=== PATIENT | male | born 1955 | race African-American/Black ===

== ENCOUNTER 2020-05-06 11:36 | Emergency (ER) | payer OTHER ==
[2020-05-06 12:43] LABS: ALT (SGPT) 8 U/L (8-55); AST (SGOT) 13 U/L (5-34); Albumin 3.5 g/dL (3.4-4.8); Alkaline Phosphatase 49 U/L (40-110); Anion Gap 11 mmol/L (10-20); BUN (Urea Nitrogen) 25 mg/dL (8.4-25.7); Bilirubin, Total 0.3 mg/dL (0.2-1.2); Calc. Creatinine Clearance 0 mL/min (70-130); Calcium 8.6 mg/dL (7.8-10.44); Carbon Dioxide 24 mmol/L (23-31); Chloride 105 mmol/L (98-107); Globulin 2.9 g/dL (2.4-3.5); Glucose 160 mg/dL (80-115); Protein, Total 6.4 g/dL (5.8-8.1); Sodium 136 mmol/L (136-145)
[2020-05-06 12:44] LABS: Hemoglobin 4.5 g/dL (13.5-17.5)
[2020-05-06 12:45] LABS: Mean Corpuscular HGB CONC 28.3 g/dL (32.0-36.0); Mean Corpuscular Hemoglobin 17.4 pg (27.0-33.0); Mean Corpuscular Volume 61.6 fl (81.2-95.1); RBC Distribution Width 21.7 % (11.5-14.5); Red Blood Cell (RBC) Count 2.58 10x6/uL (4.32-5.72); White Blood Cell (WBC) Count 4.4 10x3/uL (3.5-10.5)
[2020-05-06 12:49] LABS: #Eosinphils 0.2 10x3/uL (0.0-0.5); #Monocytes 0.5 10x3/uL (0.0-1.1); #Neutrophils 2.8 10x3/uL (1.5-8.4); %Basophils 0.2 % (0.0-2.0); %Eosinophils 4.8 % (0.0-6.0); %Lymphocytes 19.5 % (18.0-47.0); %Monocytes 11.2 % (0.0-10.0); %Neutrophils 63.8 % (40.0-75.0); Platelet Count 146 10x3/uL (150-450)
[2020-05-06 13:15] LABS: Hypochromia SLIGHT = 6-15 cells (100X) (0-5/hpf)
[2020-05-06 13:16] LABS: Microcytosis MODERATE=15-30 cells (100X) (0-5/hpf)
[2020-05-06 13:17] LABS: Ovalocytes SLIGHT = 2-5 cells (100X) (0-1/hpf)
[2020-05-06 13:23] LABS: Anisocytosis SLIGHT = 6-15 cells (100X) (0-5/hpf)
[2020-05-06 13:24] LABS: Platelet Morphology Comment Appears Adequate
[2020-05-06 13:27] LABS: Reflex for Review?? YES
[2020-05-06 13:35] LABS: PTT 21.9 sec (22.0-33.0); Prothrombin Time 11.1 sec (9.5-12.1)
[2020-05-06] MEDS ORDERED: Pantoprazole 40 MG VIAL ONE (13:51)
[2020-05-06 18:34] LABS: #Eosinphils 0.3 10x3/uL (0.0-0.5); #Monocytes 0.5 10x3/uL (0.0-1.1); #Neutrophils 2.5 10x3/uL (1.5-8.4); %Basophils 0.5 % (0.0-2.0); %Eosinophils 6.9 % (0.0-6.0); %Lymphocytes 21.3 % (18.0-47.0); %Monocytes 12.3 % (0.0-10.0); %Neutrophils 58.8 % (40.0-75.0); Hemoglobin 5.6 g/dL (13.5-17.5); Mean Corpuscular HGB CONC 29.6 g/dL (32.0-36.0); Mean Corpuscular Volume 64.1 fl (81.2-95.1); Platelet Count 141 10x3/uL (150-450); RBC Distribution Width 25.6 % (11.5-14.5); Red Blood Cell (RBC) Count 2.95 10x6/uL (4.32-5.72); White Blood Cell (WBC) Count 4.2 10x3/uL (3.5-10.5)
[2020-05-06 21:28] LABS: Anisocytosis SLIGHT = 6-15 cells (100X) (0-5/hpf)
[2020-05-06 21:30] LABS: Hypochromia SLIGHT = 6-15 cells (100X) (0-5/hpf); Microcytosis MODERATE=15-30 cells (100X) (0-5/hpf)
[2020-05-06 21:31] LABS: Ovalocytes SLIGHT = 2-5 cells (100X) (0-1/hpf)
[2020-05-06 21:33] LABS: Platelet Morphology Comment Appears Decreased
[2020-05-07] MEDS ORDERED: hydrALAZINE 25 MG TAB ONE ×2 (01:56→06:40)
[2020-05-07 04:35] LABS: #Eosinphils 0.3 10x3/uL (0.0-0.5); #Monocytes 0.6 10x3/uL (0.0-1.1); #Neutrophils 4.1 10x3/uL (1.5-8.4); %Basophils 0.5 % (0.0-2.0); %Eosinophils 4.9 % (0.0-6.0); %Lymphocytes 13.1 % (18.0-47.0); %Neutrophils 71.3 % (40.0-75.0); Mean Corpuscular HGB CONC 32.3 g/dL (32.0-36.0); Mean Corpuscular Hemoglobin 22.2 pg (27.0-33.0); Mean Corpuscular Volume 68.9 fl (81.2-95.1); Platelet Count 145 10x3/uL (150-450); RBC Distribution Width 27.4 % (11.5-14.5); White Blood Cell (WBC) Count 5.7 10x3/uL (3.5-10.5)
== END 2020-05-07 08:34 | disposition short-term general hospital (02) ==
LOC: CSHERS 11:36
DX: K92.2 Gastrointestinal hemorrhage, unspecified (principal); D64.9 Anemia, unspecified; E11.22 Type 2 diabetes mellitus with diabetic chronic kidney disease; I12.9 Hypertensive chronic kidney disease with stage 1 through stage 4 chronic kidney disease, or unspecified chronic kidney disease; N18.9 Chronic kidney disease, unspecified; Z79.4 Long term (current) use of insulin; Z79.82 Long term (current) use of aspirin; Z79.899 Other long term (current) drug therapy
CPT/HCPCS: 36415; 36416; 36430; 80053; 84484; 85025; 85060; 85610; 85730; 86850; 86900; 86901; 93005; 96374; C9113; P9016